=== PATIENT | female | born 1995 | race Caucasian/White ===

== ENCOUNTER 2022-03-22 05:18 | Inpatient (IN) ==
[~2022-03-22 05:18] MED LIST: Azithromycin 500 MG in 0.9 % Sodium Chloride 250 ML IVPB PRN; CeFAZolin 2,000 MG/120 ML BAG IVPB ONE; Famotidine 20 MG/2 ML VIAL IVP ONE; Metoclopramide 10 MG/2 ML VIAL IVP ONE; OXYTOCIN/RINGERS LACTATE 10 UNIT/166.6 ML BAG IVC ONE; Ringers Solution, Lactated 1,000 ML IVC ONE
[2022-03-22] MEDS ORDERED: Ringers Solution, Lactated 1,000 ML IVC SCH (05:30)
[2022-03-22] MEDS ORDERED: Oxytocin 30 UNIT/503 ML BAG IVC SCH (05:30)
[2022-03-22] MEDS ORDERED: Ondansetron 4 MG/2 ML VIAL ONE (06:11)
[2022-03-22] MEDS ORDERED: *HR* FentaNYL (PF) 100 MCG/2 ML VIAL ONE (06:11)
[2022-03-22] MEDS ORDERED: *HR* Phenylephrine 10 MG/ML VIAL ONE (06:11)
[2022-03-22] MEDS ORDERED: *HR* Morphine Sulfate/PF 10 MG/10 ML AMPUL ONE (06:11)
[2022-03-22 06:30] LABS: Influenza A PCR Negative (Negative); Influenza B PCR Negative (Negative); Resp. Syncytial Virus PCR Negative (Negative)
[2022-03-22 06:31] LABS: SARS-CoV-2 by PCR (In House) Negative (Negative)
[2022-03-22] MEDS ORDERED: Promethazine 6.25 MG in Water for inj. (sterile) 20 ML IVPB PRN (06:32)
[2022-03-22] MEDS ORDERED: *HR* HYDROmorphone PF 0.5 MG/0.5 ML SYRINGE IVP PRN (06:32)
[2022-03-22] MEDS ORDERED: Naloxone 0.4 MG/ML INJ IVP PRN (06:32)
[2022-03-22 06:38] LABS: Amphetamine Screen,Urine Negative ng/mL (Cutoff=1000); Barbiturate Screen,Urine Negative ng/mL (Cutoff=200)
[2022-03-22 06:39] LABS: Benzodiazepines Screen,Urine Negative ng/mL (Cutoff=300); Cannabinoid Screen,Urine Negative ng/mL (Cutoff = 50); Cocaine Screen,Urine Negative ng/mL (Cutoff= 300); Opiate Screen,Urine Negative ng/mL (Cutoff=300); Phencyclidine Screen,Urine Negative ng/mL (Cutoff=25)
[2022-03-22 06:44] LABS: Basophils % 0.3 %; Eosinophils % 0.4 %; Hematocrit 37.9 % (35.3-44.9); Hemoglobin 12.8 g/dL (11.5-15.4); Immature Granulocytes % 2.3 % (0-4); Lymphocytes % 21.7 %; Mean Corpuscular HGB Conc 33.8 g/dL (31.6-35.5); Mean Corpuscular Hemoglobin 31.7 pg (28.0-33.3); Mean Corpuscular Volume 93.8 fL (83.0-100.0); Mean Platelet Volume 10.1 fL (9.4-12.4); Monocytes # 0.9 K/mcL (0.0-1.3); Monocytes % 9.6 %; Platelet Count 237 K/mcL (140-400); Red Blood Count 4.04 M/mcL (3.82-4.97); Red Cell Distribution Width 13.9 % (11.5-14.5); Segmented Neutrophils % 65.7 %; White Blood Count 9.2 K/mcL (4.3-11.1)
[2022-03-22] MEDS ORDERED: EPHEDrine 50 MG/ML VIAL ONE (07:02)
[2022-03-22] MEDS ORDERED: *HR* Oxytocin 10 UNIT/ML VIAL ONE (07:20)
[2022-03-22] MEDS ORDERED: Ketorolac 30 MG/ML VIAL ONE (07:31)
[2022-03-22] MEDS ORDERED: Ringers Solution, Lactated 1,000 ML ONE (07:32)
[2022-03-22] MEDS ORDERED: *HR* Norepinephrine 4 MG/4 ML VIAL IVC ONE (07:36)
[2022-03-22] MEDS ORDERED: Ondansetron 4 MG/2 ML VIAL IVP PRN (11:03)
[2022-03-22] MEDS ORDERED: Metoclopramide 10 MG/2 ML VIAL IVP PRN (11:03)
[2022-03-22] MEDS: *HR* OxyCODONE Immed Rel 5 MG TABLET PO PRN (11:21)
[2022-03-22] MEDS: cephALEXin 500 MG CAPSULE PO SCH ×3 (11:21→21:12)
[2022-03-22] MEDS: metroNIDAZOLE 500 MG TABLET PO SCH ×3 (11:21→21:11)
[2022-03-22] MEDS: Simethicone 80 MG TAB.CHEW PO SCH ×3 (11:44→21:11)
[2022-03-22] MEDS: Prenatal Vit/FA 1 EACH TABLET PO SCH (11:45)
[2022-03-22] MEDS ORDERED: Ketorolac 30 MG/ML VIAL IVP ONE (14:00)
[2022-03-22] MEDS: Acetaminophen 325 MG TABLET PO SCH ×2 (14:32→21:11)
[2022-03-22] MEDS: Ibuprofen 600 MG TABLET PO SCH (16:53)
[2022-03-23] MEDS: Ibuprofen 600 MG TABLET PO SCH ×3 (00:48→15:34)
[2022-03-23] MEDS: Acetaminophen 325 MG TABLET PO SCH ×3 (04:10→21:08)
[2022-03-23 05:18] LABS: Basophils % 0.3 %; Eosinophils # 0.1 K/mcL (0.0-0.6); Hematocrit 32.5 % (35.3-44.9); Immature Granulocytes % 1.3 % (0-4); Lymphocytes # 1.8 K/mcL (0.6-4.6); Lymphocytes % 19.6 %; Mean Corpuscular HGB Conc 33.5 g/dL (31.6-35.5); Mean Corpuscular Hemoglobin 31.6 pg (28.0-33.3); Mean Corpuscular Volume 94.2 fL (83.0-100.0); Monocytes # 0.8 K/mcL (0.0-1.3); Neutrophils # 6.2 K/mcL (1.6-8.9); Platelet Count 197 K/mcL (140-400); Red Blood Count 3.45 M/mcL (3.82-4.97); Segmented Neutrophils % 68.8 %
[2022-03-23 05:19] LABS: Hemoglobin 10.9 g/dL (11.5-15.4)
[2022-03-23] MEDS: cephALEXin 500 MG CAPSULE PO SCH ×3 (08:08→21:07)
[2022-03-23] MEDS: Prenatal Vit/FA 1 EACH TABLET PO SCH (08:08)
[2022-03-23] MEDS: Simethicone 80 MG TAB.CHEW PO SCH ×3 (08:09→21:07)
[2022-03-23] MEDS: metroNIDAZOLE 500 MG TABLET PO SCH ×3 (08:09→21:07)
[2022-03-23] MEDS: *HR* OxyCODONE Immed Rel 5 MG TABLET PO PRN (08:09)
[2022-03-24] MEDS: *HR* OxyCODONE Immed Rel 5 MG TABLET PO PRN (03:41)
[2022-03-24] MEDS: Acetaminophen 325 MG TABLET PO SCH ×2 (03:42→07:30)
[2022-03-24 06:42] VITALS: BP 128/82; PULSE 63; TEMP 98.4; O2SAT 99
[2022-03-24] MEDS: Simethicone 80 MG TAB.CHEW PO SCH (07:46)
[2022-03-24] MEDS: Prenatal Vit/FA 1 EACH TABLET PO SCH (07:46)
== END 2022-03-24 11:04 | disposition home or self-care (01) | DRG 539 ==
LOC: 1NENULAB → 1NENUOBS 10:50
PROVIDERS: ADMIT Obstetrics & Gynecology; ATTEND Obstetrics & Gynecology